=== PATIENT | female | born 2000 | race Hispanic/Latino ===

== ENCOUNTER 2024-01-11 21:56 | Inpatient (IN) | payer SELFPAY ==
[2024-01-11 21:41] VITALS: BP 109/67; PULSE 75; PULSE 77; O2SAT 99; BMI 24.3
--- NOTE | 2024-01-11 22:22 | PCM.HP.OB ---
HPI - General General Date of Admission: 01/11/24 Date of Service: 01/11/24 Chief Complaint: vaginal bleeding HPI Narrative CARIN MATT, is a 23 F who presents with vaginal bleeding. Started having light bright red bleeding today at 1900. No gushes of fluid. Has felt leaking of fluid for about 1 week. Had negative fern test in office 1 week ago. Having contractions that are not painful. DFM today. PFSH PFSH Home Medications ?Medication ?Instructions ?Recorded ?Last Taken ?Type vit no.133-ferrous tab PO 01/11/24 01/10/24 History fumarate 28 mg-folic acid 800 mcg tablet () Allergy/AdvReac Type Severity Reaction Status Date / Time No Known Allergies Allergy Verified 01/11/24 21:43 NST FHR Rate Baby A Baseline: 135 Variability:: Moderate Accelerations:: 15 x 15 Decelerations:: None NST Reactive:: Yes FHR Category:: Category I Uterine Activity:: ctx's q 1-2 min Vital Signs Vital Signs Vital Signs: 01/11/24 21:41 01/11/24 21:41 01/11/24 21:41 Pulse Rate 75 77 Blood Pressure 109/67 BP Systolic 109 BP Diastolic 67 Pulse Ox 01/11/24 21:41 Pulse Rate Blood Pressure BP Systolic BP Diastolic Pulse Ox 99 Weight Weight: 146 lb 6.191 oz Body Mass Index (BMI) 24.3 Physical Exam Const alert and no apparent distress General Appearance: comfortable HEENT normocephalic Resp normal respiratory effort GI soft to palpation, non-tender and non-distended Labs Labs Labs: No Data to Display Assessment & Plan (1) 39 weeks gestation of : PLAN: Cervix closed on RN exam with bright red blood present that was slightly more than expected for bloody show. Pad with an area of brown blood about 4x3 cm in size, and continued slow bleeding. Given bleeding and ctx's q 1-2 min, discussed with patient cannot rule out placental abruption. No trauma or abdominal injury. Abdomen is soft and NT. Check abruption labs. Bedside US showing vertex presentation and MVP 5.3 cm. Discussed r/b/a induction of labor if no cervical change given 39+ weeks with VB, and patient desires to proceed. Will re examine cervix, and if no cervical change start Cytotec for induction. GBS negative. Epidural PRN. Pelvis adequate and EFW < 4500 grams. (2) Vaginal bleeding during : (3) Language barrier:
[2024-01-11] MEDS: Lactated Ringers 1,000 ML 50 ML IV (22:30)
[2024-01-11 22:45] LABS: Absolute Lymphocyte Count 1.77 X10^3/uL (0.83-4.51); Absolute Neutrophil Count 8.3 X10^3/uL (2.0-7.7); Basophil# 0.06 X10^3/uL; Basophil% 0.6 % (0-1); Eosinophil# 0.03 X10^3/uL; Eosinophils% 0.3 % (0-5); Hematocrit 41.5 % (37-47); Hemoglobin 14.1 g/dL (12.0-15.0); Lymphocyte # 1.77 X10^3/ul (0.83-4.51); Lymphocyte % 16.4 % (19-41); Mean Corpuscular Hgb 30.8 pg (27.0-32.0); Mean Corpuscular Volume 90.6 fL (81-99); Monocyte% 4.6 % (0-10); NRBC Flagged by Analyzer 0 % (0-5); Neutrophil # 8.31 X10^3/uL (2.7-7.7); Neutrophil % 77.3 % (47-70); Platelet Count 247 K/mm3 (150-450); RBC Distribution Width CV 12.1 % (11.6-14.6); RBC Distribution Width SD 39.8 fl (35.1-43.9); Red Blood Count 4.58 M/mm3 (4.2-5.4); White Blood Count 10.8 K/mm3 (4.4-11.0)
[2024-01-11 23:12] LABS: International Normalized Ratio 0.9; Partial Thromboplast Time 27.9 Seconds (24.1-36.2); Prothrombin Time (Protime)PT. 12.4 SECONDS (11.7-14.9)
[2024-01-11 23:13] LABS: Fibrinogen 559 mg/dl (203-444)
[2024-01-11 23:26] VITALS: PULSE 84; O2SAT 100
[2024-01-11 23:27] VITALS: BP 108/61; PULSE 74; RESP 16; TEMP 36.6; O2SAT 99
[2024-01-11 23:34] LABS: Syphilis Antibodies Non-reactive
[2024-01-12] VITALS (51 sets, daily range): BP systolic 72–124; BP diastolic 35–88; PULSE 57–143; RESP 16; TEMP 36.1–36.6; O2SAT 78–100
[2024-01-12] MEDS: Lactated Ringers 1,000 ML 999 ML IV (04:24)
[2024-01-12] MEDS: fentaNYL-bupivacaine (epidural) 100 ML BAG EPIDURAL ×4 (05:16→19:20)
[2024-01-12] MEDS: Oxytocin 15 Units/NS 250ml 15 UNITS/250 ML IV.SOLN 2 UNITS IV (07:00)
[2024-01-12] MEDS: LACTATED RINGERS 500 ML 999 ML IV (08:10)
[2024-01-12] MEDS: Lactated Ringers 1,000 ML 200 ML IV ×3 (08:10→18:19)
[2024-01-12] MEDS: 0.9% Normal Saline Single 100 ML IV.SOLN. INTRA-UTER (08:33)
--- NOTE | 2024-01-12 18:25 | PCM.PN.OB ---
Subjective Subjective Resting in bed comfortably with epidural. Family at bedside. Objective Data Objective Data Vital Signs: Vital Signs Temp Pulse Resp BP Pulse Ox 97.4 F L 83 16 123/83 H 100 01/12/24 18:19 01/12/24 18:19 01/12/24 18:19 01/12/24 18:19 01/12/24 18:19 Weight: 146 lb 6.191 oz Body Mass Index (BMI) 24.3 Intake & Output: Intake and Output for Last 24 Hours 01/10/24 01/11/24 01/12/24 23:59 23:59 23:59 Intake Total 4289.37 / 4289.37 Output Total 1250 / 1250 Balance 3039.37 / 3039.37 Lab / Micro Data 01/11/24 22:30 Labs: Laboratory Results - last 24 hr 01/11/24 22:30: WBC 10.8, RBC 4.58, Hgb 14.1, Hct 41.5, MCV 90.6, MCH 30.8, MCHC 34.0, RDW Std Deviation 39.8, RDW Coeff of Alejandra 12.1, Plt Count 247, MPV 11.0, Immature Gran % (Auto) 0.800, Neut % (Auto) 77.3 H, Lymph % (Auto) 16.4 L, [place] % (Auto) 4.6, Eos % (Auto) 0.3, Baso % (Auto) 0.6, Absolute Neuts (auto) 8.3 H, Absolute Lymphs (auto) 1.77, Nucleated RBC % 0, PT 12.4, INR 0.9, APTT 27.9, Fibrinogen 559 H, Syphilis Total Ab Non-reactive, Blood Type O POSITIVE, Antibody Screen NEGATIVE Physical Exam Narrative: 1.5cm/60%/-1, mendiola inserted without complication, tolerated well. NST FHR Rate Baby A Baseline: 145 Variability:: Moderate Accelerations:: 15 x 15 Decelerations:: None FHR Category:: Category I Uterine Activity:: Every 2-4 minutes Assessment & Plan (1) Language barrier: (2) 39 weeks gestation of : (3) Vaginal bleeding during : (4) Encounter for induction of labor: PLAN: Plan 1) Mendiola for cervical ripening 2) EFM 3) Epidural for pain management 4) Dr.Eran collaborative physician and notified of patient above assessment and plan.
--- NOTE | 2024-01-12 20:51 | EX.PCM.OBRPT ---
Assessment & Plan (1) Encounter for induction of labor: (2) Language barrier: (3) Vaginal delivery: (4) Lactating mother: (5) First degree perineal laceration: Maternal Data Information Final ALEX: 01/16/24 Vaginal Delivery Maternal Presentation Maternal Presentation: Medically Indicated Induction Type of Induction: Pitocin and [place] [facility] [facility] Reason for Induction: - (vaginal bleeding) Operative Information Date of Procedure: 01/12/24 Pre-Operative Diagnosis: Induction of labor for vaginal bleeding Post-Operative Diagnosis: , first degree perineal laceration Surgery / Procedure Performed: Spontaneous Vaginal Delivery Type of Anesthesia: Epidural Estimated Blood Loss: 300ml Time of Delivery: 20:26 Findings Description of Procedure: Progressed to complete with urge to push. Epidural for pain management. of viable female over 1st degree perineal laceration. APGARS 8,9 respectively. Infant head delivered with body immediately forthcoming. Placed on maternal abdomen, strong cry. Mouth and nares suctioned for secretions. Pitocin started for active 3rd stage management. Cord doubly clamped and cut by FOB after pulsations ceased, delayed cord clamping. Placenta delivered intact via silver, 3 vessel cord intact. Perineum inspected and revealed 1st degree perineal laceration. Repaired with 3.0 vicryl rapide and epidural anesthesia. Fundus firm and hemostasis achieved. EBL 300ml. Mom and baby stable, planning to breastfeed. Family bonding well. notified of delivery. Family present on unit for certified court/medical interpreter per patient request. Presentation: Vertex Amniotic Membrane Rupture Type: Artificial Amniotic Fluid Description: Lightly stained meconium Placental Delivery Description: Spontaneous Placenta Disposition: [facility] Cord Vessel Description: 3 Vessels Cord Entanglement: - (Around the abdomen and around the right arm x 1) Nuchal Cord Compression: Without compression A Gender: Female (1 minute): 8 (5 minute): 9 Delayed Cord Clamping: Yes Post Vaginal Delivery Medications Given After Delivery: IV Pitocin Episiotomy Description: None Laceration: Perineal Extension/lac and 2nd degree Complication Complications: None
[2024-01-12] MEDS: Oxytocin 15 Units/NS 250ml 15 UNITS/250 ML IV.SOLN 83 UNITS IV (21:02)
--- NOTE | 2024-01-13 02:21 | NURSING ---
Lineman Service Or Work Dispatcher Natalie [phone]
[2024-01-13 04:30] VITALS: BP 98/68; PULSE 86; RESP 16; TEMP 36.6; O2SAT 100
[2024-01-13] MEDS: Acetaminophen 500 MG Tablet 1000 MG PO (05:59)
[2024-01-13 06:13] LABS: Absolute Lymphocyte Count 1.72 X10^3/uL (0.83-4.51); Absolute Neutrophil Count 13.9 X10^3/uL (2.0-7.7); Basophil# 0.05 X10^3/uL; Basophil% 0.3 % (0-1); Eosinophil# 0.01 X10^3/uL; Eosinophils% 0.1 % (0-5); Hematocrit 30.9 % (37-47); Hemoglobin 10.8 g/dL (12.0-15.0); Lymphocyte # 1.72 X10^3/ul (0.83-4.51); Lymphocyte % 10.5 % (19-41); Mean Corpuscular Hgb 31.6 pg (27.0-32.0); Mean Corpuscular Volume 90.4 fL (81-99); Mean Platelet Vol. 10.8 fl (6.2-12.0); Monocyte# 0.68 X10^3/uL; Monocyte% 4.1 % (0-10); NRBC Flagged by Analyzer 0 % (0-5); Neutrophil # 13.93 X10^3/uL (2.7-7.7); Neutrophil % 84.6 % (47-70); Platelet Count 190 K/mm3 (150-450); RBC Distribution Width CV 12.4 % (11.6-14.6); RBC Distribution Width SD 40.7 fl (35.1-43.9); Red Blood Count 3.42 M/mm3 (4.2-5.4); White Blood Count 16.5 K/mm3 (4.4-11.0)
--- NOTE | 2024-01-13 06:15 | NURSING ---
staff climate scientist used at 0535: Waqar ID [id number].
[2024-01-13 08:40] VITALS: BP 102/72; PULSE 79; RESP 14; TEMP 36.4
--- NOTE | 2024-01-13 09:10 | PCM.PN.OB ---
Subjective Subjective Doing well. Pain controlled. Voiding without difficulty. Breast feeding well. Objective Data Objective Data Vital Signs: Vital Signs Temp Pulse Resp BP Pulse Ox O2 Del Method 97.9 F 86 16 98/68 100 Room Air 01/13/24 04:30 01/13/24 04:30 01/13/24 04:30 01/13/24 04:30 01/13/24 04:30 01/13/24 04:30 Oxygen Delivery Method Room Air Weight: 66.4 kg Body Mass Index (BMI) 24.3 Intake & Output: Intake and Output for Last 24 Hours 01/11/24 01/12/24 01/13/24 23:59 23:59 23:59 Intake Total 4921.67 / 4921.67 250 / 250 Output Total 2049 / 2049 100 / 100 Balance 2871.67 / 2871.67 150 / 150 Lab / Micro Data 01/13/24 06:00 Labs: Laboratory Results - last 24 hr 01/13/24 06:00: WBC 16.5 H, RBC 3.42 L, Hgb 10.8 L, Hct 30.9 L, MCV 90.4, MCH 31.6, MCHC 35.0, RDW Std Deviation 40.7, RDW Coeff of Alejandra 12.4, Plt Count 190, MPV 10.8, Immature Gran % (Auto) 0.400, Neut % (Auto) 84.6 H, Lymph % (Auto) 10.5 L, [place] % (Auto) 4.1, Eos % (Auto) 0.1, Baso % (Auto) 0.3, Absolute Neuts (auto) 13.9 H, Absolute Lymphs (auto) 1.72, Nucleated RBC % 0 Physical Exam Const alert and no apparent distress Narrative: Fundus firm, below umbilicus. Assessment & Plan (1) Vaginal delivery: (2) Lactating mother: PLAN: Plan Planning nexplanon
[2024-01-13 12:30] VITALS: BP 94/56; PULSE 86; RESP 17; TEMP 36.6; O2SAT 96
--- NOTE | 2024-01-13 13:42 | CASEMGMT ---
Social Work Assessment Labor and Delivery Unit Patient Address: [address] [place], [place] [address] [address] Phone number: [phone] Date of Referral: 01/12/24 Time of Referral:? 2321 Referred By: Johnna Mccain Date of Intervention: ??01/13/24 Time of Intervention:? 1100 Reason for Referral:? anxiety Sw completed chart review and acknowledges social work consult due to maternal mental health of anxiety. Sw presented to bedside along with solar sales representative and assessor from [employer], Natacha. Sw introduced self and explained sw role during hospitalization. Sw completed psychosocial assessment, with mother of baby (MOB- Ronaldo) and father of baby (FOB- Thor Zuñiga) using sister to FOB who interpreted. Sw offered to use iPad, however ANTONY adamant that it is okay to use her sister in law, Joann. History obtained from: medical records, MOB and FOB Household composition: ANTONY states that currently residing in the family home is MOB, FOB and now baby when ready for discharge. No issues or concerns with housing at this time. Patient's parent/guardian status:? MOB and FOB met each other when they were in elementary school with each other. They have been together for 5 years, however were during a portion of that time when MOB was residing in [place] and FOB had moved to the . No concerns reported of domestic violence or intimate partner violence at this time. ? Medical History: ANTONY is 23 year old female who is 2, para 0- now 1 following labor and delivery or . ANTONY received routine care during with [facility]. ANTONY presented to hospital and delivered baby at 39 weeks gestation on 01/11/25 via vaginal delivery. Baby girl, named Silas, was born weighing 7lb 8oz with apgars of 8 and 10 at one and five minutes of life, respectfully. MOB states that she is breast feeding and baby will be followed by Dr. Welch. ? Educational Status:? FOB completed the 8th grade, and MOB completed high school. No concerns with reading, learning or comprehension. Financial Status: FOVin is employed at [employer], he states that he has been there for three years. MOB is unemployed at this time. Supplies:?? Parents report to obtaining all necessary baby supplies, including: car seat, safe sleep space, clothes, diapers and wipes. ANTONY states that she does not have a breast pump. Sw informed ANTONY that when her Medicaid is approved they could order her a breast pump with the assistance from . Childcare/Caregiver(s):? ANTONY will be the primary caregiver to baby along with ERICK when he is not working. ANTONY also has the help and assistance from her sister in law. Transportation:?? ERICK states that he has his drivers license and reliable means of transportation. No barriers at this time. Programs/Agencies Involved: ANTONY completed an application for Medicaid with Natacha from [employer]. ANTONY's sister in law is also assisting MOB in getting connected to [facility]. Parents deny any other linkage to community resources at this time. ??? Children Services/Legal Issues:??No history of involvement, no issues or concerns warranting referral to be made at this time. ? Behavioral Health Issues: ??Mental Health History:?ERICK states that he does not have any mental health diagnoses. ANTONY states that she has struggled with anxiety when she was residing in [place]. ANTONY states that she was prescribed medication but does not recall what it is called. MOB states that at this time she feels happy and well.?? Substance Use History:?Parents deny any substance use prior to and during . ? Family History: Parents deny family history of addiction or significant mental health diagnoses. ? Drug Screens: No drug screens observed in chart review. ?? Family/Social Stressors:? Parents deny any issues, concerns or stressors at this time. Support Systems: Parents report that their biggest supports are ERICK's sister and ANTONY's brother. Depression/Shaken Baby/Safe Sleeping:? Dwight educated parents on signs and symptoms of mood and anxiety disorders to be on the lookout for during this period. Dwight encouraged ANTONY to reach out to her natural supports and her OBGYN if she were to feel as though she is struggling during this time. MOB expressed understanding. Dwight educated parents on shaken baby prevention and ABCs of safe sleep. Parents express understanding. ASSESSMENT: ANTONY laying in bed and ERICK sitting in chair in room. Baby asleep in crib throughout completion of psychosocial assessment. This is first baby for both parents. ANTONY was previously residing in [place], and ERICK has been in the for three years. Parents report to knowing each other since Elementary school in [place] and have been in committed relationship for five years. Parents live independently but have family and friends who live close and are able to help them. FOB is employed and MOB will stay home with the baby and be the primary caregiver. ? Parents report that they have obtained all necessary baby supplies necessary and have natural supports in place. MOB with history of anxiety, but states that she has not been on medication since coming to the and at this time is feeling really good. PLAN:? MOB and baby to be discharged when medically ready. ?No other services requested or indicated. [facility], MANAGER BOOK, DRYING TUMBLER OPERATOR
[2024-01-13 16:00] VITALS: BP 92/59; PULSE 71; RESP 16; TEMP 36.3; O2SAT 99
[2024-01-13] MEDS: Lidocaine 1% (20 ml mdv) 20 ML Vial INFILT (19:00)
[2024-01-13] MEDS: Etonogestrel 68 MG IMPLANT SC (19:05)
--- NOTE | 2024-01-13 19:17 | NURSING ---
nexplanon placed by dr umana- machine boss used- pt consents
--- NOTE | 2024-01-13 19:30 | PRO.PCM_ITS ---
Procedure Report Date of Procedure: 01/13/24 Nexplanon Insertion Procedure Note PRE-OP DIAGNOSIS: desired long-term, reversible contraception POST-OP DIAGNOSIS: Same PROCEDURE: Nexplanon placement Site: Left Arm Sterile Preparation: Betadine Insertion site was selected 8 ? 10 cm from medial epicondyle Procedure area was prepped and draped in a sterile fashion. 2 mL of 1% lidocaine without epinephrine used for subcutaneous anesthesia. Anesthesia confirmed. Nexplanon trocar was inserted subcutaneously and then Nexplanon capsule delivered subcutaneously Trocar was removed from the insertion site. Nexplanon capsule was palpated by provider and patient to assure satisfactory placement. Estimated blood loss of scant Adhesive Dressing applied The patient tolerated the procedure well without complications. Standard post- procedure care is explained and return precautions are given Assessment & Plan Assessment/Plan (1) Nexplanon insertion:
[2024-01-13 20:47] VITALS: BP 109/75; PULSE 81; RESP 20; TEMP 36.6; O2SAT 99
--- NOTE | 2024-01-13 21:35 | NURSING ---
used interpreters Sil (#[id number]) and Kristan ([id number])
[2024-01-14 01:25] VITALS: BP 103/67; PULSE 73; RESP 18; TEMP 36.4; O2SAT 100
--- NOTE | 2024-01-14 01:40 | NURSING ---
Group Home Manager Arthur. #[id number]
[2024-01-14 08:00] VITALS: BP 107/71; PULSE 87; RESP 18; TEMP 36.3; O2SAT 99
--- NOTE | 2024-01-14 08:16 | PCM.DC.SUM ---
Providers Date of Admission: 01/11/24 Primary Care Physician: No Primary Care Phys Reason For Visit: VAGINAL DELIVERY Diagnosis Discharge Diagnosis (1) Nexplanon insertion: Status: Acute Code(s): Z30.017 - Encounter for initial prescription of implantable subdermal contraceptive (2) First degree perineal laceration: Status: Acute Code(s): O70.0 - First degree perineal laceration during delivery (3) Lactating mother: Status: Acute Code(s): Z39.1 - Encounter for care and examination of lactating mother (4) Vaginal delivery: Status: Acute Code(s): O80 - Encounter for full-term uncomplicated delivery (5) Language barrier: Status: Acute Code(s): Z60.3 - Acculturation difficulty; Z75.8 - Other problems related to medical facilities and other health care Medications at Discharge Home Medications vit no.133-ferrous fumarate 28 mg-folic acid 800 mcg tablet () tab PO 01/11/24 Hospital Course Operations None Procedures None Summary of Care Provided Minutes Spent on Discharge: 15 Hospital Course: Patient had . Hospital course was uneventful. Physical Exam Narrative Interpretation services utilized. Patient seen at bedside. Denies any pain. with minimal support. Ambulating and voiding without difficulty. Lochia is mild. Desires discharge home today. Const alert and no apparent distress General Appearance: cooperative and comfortable Exam Limitations: no limitations HEENT normocephalic Eyes General Eye: normal appearance of both eyes Neck full ROM General: normal visual inspection Chest Chest: symmetrical chest wall rise Resp normal respiratory effort and normal air movement Effort and Inspection: symmetric chest movement Auscultation: clear to auscultation bilaterally Cardio regular rate and regular rhythm GI normal to inspection, nondistended, normoactive bowel sounds Back/Spine normal ROM Extremity full ROM and no calf tenderness General Extremity: normal exam except as noted Skin no rashes or lesions noted Neuro CN's II-XII intact bilaterally Psych mental status grossly normal Weight / BMI Weight Weight: 146 lb 6.191 oz Body Mass Index (BMI) 24.3 ABG / Lab / Microbiology Data 01/13/24 06:00 D/C Instructions Discharge Diet: No restrictions May resume sexual activity in: 6-8 weeks Weight Bearing Status: Weight bearing as tolerated Call your doctor if you observe: Fever of 101 or Higher, Inability to urinate, Using more than 1 pad per hour, Shortness of breath, Chest pain, Calf discomfort and Uncontrolled pain When: 2 weeks virtual visit/ 6 weeks in office Meaningful Use Info Meaningful Use Meaningful Use Diagnoses (Choose all that apply): None applicable Ischemic Stroke Statin Dosing Therapy Reference: STATIN DOSE THERAPY REFERENCE: * Patients > 75 years receive moderate or high dose statin therapy. * Patients 75 years or YOUNGER should receive HIGH intensity statin dose unless contraindicated. You will be required to document reason for non-treatment if statin daily dose does not meet guidelines. HIGH DOSE STATIN THERAPY DAILY Atorvastatin > than or = to 40 mg Rosuvastatin > than or = to 20 mg Amlodipine + Atorvastatin > than or = to 2.5/40 mg Ezetimibe + Simvastatin 10/80 mg Simvastatin 80mg Discharge Plan Admission Admit Date/Time: 01/11/24 21:56 Primary Reason for Your Visit: Labor and Delivery Attending Provider: Johnna Mccain Primary Care Provider: Care Physician,No Primary Discharge Orders/Prescriptions Prescriptions: Continued 28-800 mg-mcg tablet PO Referrals / Follow Up: Care Physician,No Primary [Primary Care Provider] - Disposition Disposition (needs filled in before D/C Order can be placed): Home, Self Care
--- NOTE | 2024-01-14 12:34 | NURSING ---
printed d/c instructions provided in [place]. All verbal d/c instructions reviewed using rn traveling service.
== END 2024-01-14 10:55 | disposition home or self-care (01) | DRG 833 ==
PROVIDERS: Admitting Provider Obstetrics & Gynecology; Visit Provider Advanced Practice Midwife
DX: O46.93 Antepartum hemorrhage, unspecified, third trimester (principal); O69.81X0 Labor and delivery complicated by cord around neck, without compression, not applicable or unspecified; O70.0 First degree perineal laceration during delivery; O77.0 Labor and delivery complicated by meconium in amniotic fluid; O69.82X0 Labor and delivery complicated by other cord entanglement, without compression, not applicable or unspecified; Z60.3 Acculturation difficulty; Z3A.39 39 weeks gestation of pregnancy; Z37.0 Single live birth
CPT/HCPCS: 59025; 59050; 76815; 85025; 85384; 85610; 85730; 86780; 86850; 86900; 86901; 99221; J7120; G0378